=== PATIENT | female | born 1965 | race Caucasian/White ===

== ENCOUNTER → 2021-10-25 | Outpatient (CLI) | payer OTHER | LOC: M WUC 09:49 | PROVIDERS: ATTEND Nurse Practitioner Family | DX: M54.2 Cervicalgia (principal); M25.559 Pain in unspecified hip; M54.50 Low back pain, unspecified; M25.561 Pain in right knee; M25.562 Pain in left knee ==

== ENCOUNTER → 2021-12-12 | Outpatient (CLI) | payer OTHER | LOC: M PLAIMG 12:15 | PROVIDERS: ATTEND Physician Assistant | DX: M54.2 Cervicalgia (principal) ==

== ENCOUNTER → 2022-04-30 | Outpatient (CLI) | payer OTHER ==
[2022-04-30 11:54] LABS: BLOOD UREA NITROGEN 13 MG/DL (7-18); CALCIUM LEVEL 9.8 MG/DL (8.5-10.1); CARBON DIOXIDE LEVEL 25 MEQ/L (21-32); CHLORIDE LEVEL 107 MEQ/L (98-107); CREATININE FOR GFR 0.89 MG/DL (0.55-1.30); GLOMERULAR FILTRATION RATE > 60.0 (>51); GLUCOSE, FASTING 294 MG/DL (70-100); POTASSIUM SERUM 4.1 MEQ/L (3.5-5.1); SODIUM LEVEL 140 MEQ/L (136-145)
== END ==
LOC: M EKG 10:38
PROVIDERS: ATTEND Orthopaedic Surgery
DX: M23.221 Derangement of posterior horn of medial meniscus due to old tear or injury, right knee (principal)

== ENCOUNTER 2023-07-23 06:10 | Day surgery (SDC) | payer OTHER ==
[~2023-07-23] VITALS: Ht 167.6 cm; Wt 115.6 kg
[~2023-07-23 06:10] MED LIST: HYDR-3363 PO; JANU100T PO; LOSA25TA13 PO; PHENYLEPHRINE 10% OPHTH SOL 5ML OS PRN; PRAV40TA2 PO
[2023-07-23] MEDS: OFLOXACIN 0.3 % (OCUFLOX) OPTH SOL 5ML OS ONE (06:45)
[2023-07-23] MEDS ORDERED: MIDAZOLAM INJ 2MG/2ML VIAL As Ordered ONE ×2 (06:56→08:21)
[2023-07-23] MEDS ORDERED: fentaNYL 100 MCG/2 ML INJECTION As Ordered ONE ×2 (06:57→08:20)
[2023-07-23] MEDS ORDERED: propofoL 200 MG/20 ML VIAL As Ordered ONE (06:57)
[2023-07-23] MEDS: PHENYLEPHRINE 2.5% OPHTH SOL 2ML OS SCH (07:05)
[2023-07-23] MEDS ORDERED: LR 1,000 ML IV SCH (07:05)
[2023-07-23] MEDS: TROPICAMIDE 1% OPHTH SOLN 15ML OS SCH (07:05)
[2023-07-23] MEDS: CYCLOPENTOLATE 1% OPHTH SOLN 2ML BTL OS SCH (07:05)
[2023-07-23] MEDS: LIDOCAINE 3.5 % 1ML OPHTH TOPICAL GEL OU ONE (07:05)
[2023-07-23] MEDS: INSULIN LISPRO (NovoLOG) PER UNIT SC PRN (07:18)
[2023-07-23] MEDS: BSS IRRIG/VANCO(10MG)/TOBRA(5MG)/EPINEPH(1:1000-0.5CC)500ML BAG-ORONLY IR ONE (08:00)
[2023-07-23] MEDS: LIDOCAINE 1% SDV 5ML VIAL As Ordered ONE (08:00)
[2023-07-23] MEDS: LIDOCAINE 2% MDV 20ML VIAL As Ordered ONE (08:01)
[2023-07-23] MEDS ORDERED: hydrALAZINE 20MG/ML 1ML VIAL As Ordered ONE (08:22)
[2023-07-23] MEDS: ACETYLCHOLINE OPHTH SOLN 1% 2ML (MIOCHOL-E) As Ordered ONE ×2 (08:29→08:35)
[2023-07-23] MEDS ORDERED: LABETALOL 100MG/20ML VIAL As Ordered ONE (09:10)
[2023-07-23] MEDS: TOBRADEX OPHTH OINT 3.5 GM As Ordered ONE (09:10)
[2023-07-23 11:57] VITALS: BP 146/69; TEMP 97.9; O2SAT 99
== END 2023-07-23 11:57 | disposition home or self-care (01) ==
LOC: M SDC 06:10
PROVIDERS: ATTEND Ophthalmology
DX: H18.512 Endothelial corneal dystrophy, left eye (principal); E11.36 Type 2 diabetes mellitus with diabetic cataract; H26.9 Unspecified cataract; I10 Essential (primary) hypertension; E78.00 Pure hypercholesterolemia, unspecified; Z79.899 Other long term (current) drug therapy; Z79.85 Long-term (current) use of injectable non-insulin antidiabetic drugs; Z88.2 Allergy status to sulfonamides; Z88.0 Allergy status to penicillin
CPT/HCPCS: 65756; 66984; J0360; J1120; J1815; J1920; J2250; J3010; V2632